=== PATIENT | female | born 1970 ===

== ENCOUNTER → 2021-11-13 10:25 | Outpatient (CLI) | payer SELFPAY ==
--- NOTE | ~2021-11-13 | US_ITS ---
EXAMINATION: US right upper quadrant DATE: 11/13/2021 10:59 INDICATION: Elevated liver enzymes TECHNIQUE: Multiple grayscale and Doppler ultrasound images of the abdomen were obtained. COMPARISON: None available FINDINGS: The head and body of the pancreas are normal. The pancreatic tail is obscured by bowel gas. The liver is normal with normal echogenicity and echotexture. No surface nodularity. Normal hepatope jayant flow in the main portal vein. The gallbladder is not identified. The common bile duct measures 10 mm, likely due to post cholecystectomy state. There was no sonographic Robert sign. IMPRESSION: 1. No sonographic correlate for the patient's symptoms. Reviewed, dictated and finalized at location B.
== END ==
DX: K76.0 Fatty (change of) liver, not elsewhere classified (principal)
CPT/HCPCS: 76705